=== PATIENT | male | born 1950 | race Caucasian/White ===

== ENCOUNTER 2025-06-12 06:09 | Day surgery (SDC) | payer MEDICARE, BC ==
--- NOTE | 2025-06-07 15:49 | ELECTROCARDIOGRAPH REPORT ---
[facility] Test Date: 2025-06-07 Test Time: 15:47:22 Pat Name: ZHEN LEONARD Department: [facility] Patient ID: [id number] Room: Gender: M Full Stack Python Developer: GISELLA : 1950 Requested By: SAM BALLARD Order Number: [id number] Reading MD: Dr. JOSEPH Gamino Measurements Intervals [place] Rate: 56 P: 0 NC: 79 QRS: 66 QRSD: 86 T: 37 QT: 432 QTc: 417 Interpretive Statements Sinus bradycardia Short NC interval Low voltage, extremity leads Abnormal R-wave progression, early transition Electronically Signed On 06-07-2025 17:07:[address] JOSEPH Gamino Please click the below link to view image of tracing.
[2025-06-07 16:12] LABS: MEAN PLATELET VOLUME 7.8 FL (7.4-10.4); PRE OP HEMATOCRIT 43.5 % (42.0-52.0); PRE OP HEMOGLOBIN 14.8 g/dL (14.0-17.9); PRE OP PLATELET COUNT 316 X10'3 (140-440); PRE OP WHITE BLOOD COUNT 7.6 10'3 (4.8-10.8); RED CELL DISTRIBUTION WIDTH 13.8 % (11.5-14.5)
[2025-06-07 16:35] LABS: CREATININE 1.84 MG/DL (0.60-1.10); PRE OP ALT 20 U/L (30-65); PRE OP ANION GAP 8 (8-16); PRE OP AST 28 U/L (10-37); PRE OP BILIRUB, TOTAL 0.2 MG/DL (0.0-1.0); PRE OP GLUCOSE 107 MG/DL (70-104); PRE OP POTASSIUM 3.7 MMOL/L (3.4-5.1); PRE OP SODIUM 142 MMOL/L (135-145); TOTAL CARBON DIOXIDE 24.7 MMOL/L (24-32); eGFR 36 ML/MIN
[2025-06-12] VITALS (8 sets, daily range): BP systolic 124–170; BP diastolic 78–102; PULSE 52–63; RESP 8–16; TEMP 97; O2SAT 96–100
[~2025-06-12] VITALS: Ht 172.7 cm; Wt 79.0 kg
[2025-06-12] MEDS: ceFAZolin 2gm/dext,iso 50mL 50 ML IV ONE (05:30)
[~2025-06-12 06:09] MED LIST: EZET10TA80 PO; LOSA-415 PO
[2025-06-12] MEDS ORDERED: LIDOcaine 2% (20mg/ml) 5ml vial ONE (06:52)
[2025-06-12] MEDS ORDERED: BUPIVAcaine 2.5mg/ml inj 50ml vial (contains preservative) ONE (06:52)
[2025-06-12] MEDS: ringers solution, lacted 1,000 ML IV SCH (07:01)
[2025-06-12] MEDS ORDERED: fentaNYL/PF 50MCG/1 ML 2ML syringe ONE (07:32)
[2025-06-12] MEDS ORDERED: midazolam 1 mg/ML 2ml injection ONE (07:33)
[2025-06-12] MEDS ORDERED: LIDOcaine 0.5% (5mg/ml) 50ml vial ONE (07:35)
[2025-06-12] MEDS: BUPIVAcaine/PF 2.5 mg/ml (0.25%) 30ml vial IJ ONE (08:20)
[2025-06-12] MEDS ORDERED: propofol inj 20 ML IV ONE ×2 (08:27)
[2025-06-12] MEDS: morphine 4 MG/ML inj SYRINge ONE (08:42)
[2025-06-12] MEDS ORDERED: ringers solution, lacted 1,000 ML IV SCH (08:55)
[2025-06-12] MEDS: morphine 4 MG/ML inj SYRINge IV PRN (09:02)
[2025-06-12] MEDS: ondansetron/PF 4mg/2ml inj IV PRN (09:02)
[2025-06-12] MEDS: acetaminophen 1,000mg/100ml IV 100 ML IV ONE (09:03)
--- NOTE | 2025-06-12 13:10 | OPERATIVE REPORT ---
Operative Report Providers to ~ Date of Procedure: Jun 12, 2025 Pre-Operative Diagnosis: CTS, trigger finger, wrist pain Post-Operative Diagnosis Right wrist failed intercarpal arthrodesis, right wrist carpal tunnel syndrome, right small finger trigger finger Procedure Performed Revision arthrodesis of right wrist intercarpal joint, right wrist open carpal tunnel release revision, right small finger trigger finger release Surgeon: Deondre Mendiola MD Graphic Arts Technician None Anesthesiologist: Will Harris Type of Anesthesia: Regional Findings: Loose hardware and failed arthrodesis Complications None Prosthetics\Implants used: Seven hole circular plate and screws Estimated Blood Loss: None Specimen Removed: Previous plate and screws not sent to pathology Description of Procedure: The patient is a 74-year-old man who previously underwent endoscopic carpal tunnel release in the remote past and also had intercarpal arthrodesis. He continued to have pain and x-rays showed one broken screw and one screw backing out leading to conclusion of the failure of fusion. Surgery is indicated to improve function. Risks and benefits were discussed with the patient some of which include but are not limited to infection, bleeding, nerve or vessel damage, failure to achieve desired results. Also with a revision fusion surgery is a chance that this might not heal as well indicating have excess stiffness from scar tissue. He agreed to proceed. He was brought to the operating room where the antibiotics and anesthetic were given. The arm was then prepped and draped in usual manner. The carpal tunnel was addressed 1st with a an incision 3 cm in length in the palm ulnar to the thenar crease in line with the radial side of the ring finger. Dissection was taken down to the reconstituted transverse carpal ligament and a small opening was made in it. This allowed access to the median nerve which was protected while the ligament was divided distally and proximally and into the forearm. The forearm fascia was bluntly dissected away from the adhesions on the nerve. The nerve was decompressed at this point. The incision was irrigated and closed with nylon suture. The hand was turned over the dorsal scar was outlined and incised. The interval was made between 3rd and 4th extensor compartments with a excision of the capsule down to the plate plate was loose and sensory was removed easily. 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 Traction was applied and the rongeur was used along with a bur to remove any fibrous tissue and freshened up the arthrodesis site. The bones were positioned appropriately and provisionally pinned with a K-wire. Fluoro imaging checked positioning. Because of the prior abnormal configuration there was not exact stacking of the bones as normally configured. Nevertheless the Reamer was used to ream at the four corners and plate was then placed and screws were attached. This was done under fluoro and the showed good position of the hardware and no protrusion of the screws into the joint. There was no impingement dorsally. The incision was irrigated. Bone putty which had been packed prior to placement of the plate was packed around the plate as well. The incision was then closed in layers. Marcaine was injected in a sterile dressing was applied along with a splint. The tourniquet was released the hand perfused well and the patient was taken to the recovery room in stable condition. He tolerated the procedure well. DEONDRE MENDIOLA Jr., MD Jun 12, 2025 13:10
== END 2025-06-12 09:50 | disposition home or self-care (01) ==
LOC: PAS 06:09
PROVIDERS: ATTEND Orthopaedic Surgery Hand Surgery
DX: G56.01 Carpal tunnel syndrome, right upper limb (principal); T84.038A Mechanical loosening of other internal prosthetic joint, initial encounter; M65.351 Trigger finger, right little finger; M25.531 Pain in right wrist; R94.31 Abnormal electrocardiogram [ECG] [EKG]; Z79.891 Long term (current) use of opiate analgesic; Z79.899 Other long term (current) drug therapy; Z96.642 Presence of left artificial hip joint; Z98.890 Other specified postprocedural states; Y83.8 Other surgical procedures as the cause of abnormal reaction of the patient, or of later complication, without mention of misadventure at the time of the procedure; Y92.89 Other specified places as the place of occurrence of the external cause
CPT/HCPCS: 25820; 26055; 36415; 64721; 80053; 82948; 85025; 93005; A4618; A6449; A7000; C1713; J0131; J2003; J2250; J2270; J2405; J2704; J3010; J3490; J7030; J7120; Z7506; Z7508; Z7512; Z7610